=== PATIENT | male | born 1995 | race African-American/Black ===

== ENCOUNTER 2018-08-19 16:25 | Emergency (ER) | payer SELFPAY ==
[~2018-08-19] VITALS: Ht 195.6 cm; Wt 95.0 kg
[2018-08-19 16:41] VITALS: BP 149/86
== END 2018-08-19 19:15 | disposition home or self-care (01) ==
LOC: ER 16:25
DX: S63.035A Dislocation of midcarpal joint of left wrist, initial encounter (principal); W18.39XA Other fall on same level, initial encounter; Y93.89 Activity, other specified; Y92.89 Other specified places as the place of occurrence of the external cause; Y99.8 Other external cause status
CPT/HCPCS: 29125; 73110; 99283